=== PATIENT | female | born 1980 | race Two or more races ===

== ENCOUNTER → 2021-12-04 08:00 | Outpatient (CLI) | payer OTHER ==
[~2021-12-04] VITALS: Ht 170.2 cm; Wt 62.6 kg
[~2021-12-04 08:00] MED LIST: COZAAR50 MG PO
== END | disposition home or self-care (01) ==
LOC: LAB 08:00 → OB/GYN 12-08 08:30 → EDSTATUS 12-08 08:30
PROVIDERS: ATTEND Student in an Organized Health Care Education/Training Program
DX: U07.1 COVID-19 (principal); N84.0 Polyp of corpus uteri; Z01.812 Encounter for preprocedural laboratory examination; I10 Essential (primary) hypertension

== ENCOUNTER 2022-01-21 08:15 | Inpatient (IN) | payer OTHER ==
[~2022-01-21] VITALS: Ht 170.2 cm; Wt 63.5 kg
[2022-01-29] MEDS ORDERED: SURFAK240 M1 PO (09:54)
[2022-01-29] MEDS ORDERED: IBU800 MG PO (09:54)
== END 2022-01-29 10:47 | disposition home or self-care (01) | DRG 743 ==
LOC: SURH 01-26 07:00 → O/R 01-26 11:49 → OB/GYN 01-26 11:49
PROVIDERS: ADMIT Student in an Organized Health Care Education/Training Program; ATTEND Student in an Organized Health Care Education/Training Program
PROC: 0UT70ZZ Resection of Bilateral Fallopian Tubes, Open Approach (ICD-10-PCS; 2022-01-26)
PROC: 0UT90ZZ Resection of Uterus, Open Approach (ICD-10-PCS; principal; 2022-01-26 07:00)
DX: D25.1 Intramural leiomyoma of uterus (principal); D25.2 Subserosal leiomyoma of uterus; D25.0 Submucous leiomyoma of uterus; Z20.822 Contact with and (suspected) exposure to COVID-19; N72 Inflammatory disease of cervix uteri